=== PATIENT | female | born 1955 | race Caucasian/White ===

== ENCOUNTER 2017-06-21 10:14 | Emergency (ER) | payer OTHER ==
[~2017-06-21] VITALS: Ht 162.6 cm; Wt 92.0 kg
[~2017-06-21 10:14] MED LIST: ALPRAZOLAM0.25 M2 PO; AMIODARONE HCL400 MG PO; MELATIN3 MG PO; METOPROLOL SUCC50 MG PO; MINIVELLE1 EAC1 TD; PRADAXA150 MG PO
[2017-06-21] MEDS ORDERED: HYDROCHLOROTHIA25 MG PO (10:58)
[2017-06-21 11:29] LABS: HEMATOCRIT 43.3 % (36.0-46.0); MCH 31.7 PG (29.0-34.0); MCHC 34.6 G/DL (30.0-36.0); MCV 91.5 FL (83-99); RBC DIS.WIDTH-CV 13.4 % (11.8-14.6); RBC DIS.WIDTH-SD 45.6 % (39-53); RED BLOOD COUNT 4.73 M/uL (3.80-5.20); WHITE BLOOD COUNT 8.6 K/uL (4.1-10.2)
[2017-06-21 11:37] LABS: CHLORIDE 101 mEq/L (99-109); POTASSIUM 3.7 mEq/L (3.7-5.4); SODIUM 140 mEq/L (136-147)
[2017-06-21 11:39] LABS: GLUCOSE 95 mg/dL (70-99)
[2017-06-21 11:40] LABS: ANION GAP 10 MEQ/L (2-14)
[2017-06-21 11:43] LABS: GFR ESTIMATE (CALCULATED) > 59 mL/min/
[2017-06-21 11:44] LABS: UREA NITROGEN (BUN) 16 mg/dL (9-23)
[2017-06-21 11:50] LABS: TROP-I INTERPRETATION NEGATIVE; TROPONIN-I < 0.01 ng/mL (0.0-0.30)
[2017-06-21 12:25] LABS: MEAN PLAT.VOLUME 11.6 uM^3 (9.5-12.4); PLAT.SUFFICIENCY ADEQUATE; PLATELET COUNT 241 K/uL (156-360)
[2017-06-21 14:08] LABS: TROP-I INTERPRETATION NEGATIVE; TROPONIN-I < 0.01 ng/mL (0.0-0.30)
[2017-06-21] MEDS ORDERED: NAPROXEN500 MG PO (14:11)
[2017-06-21 14:18] VITALS: BP 124/72
== END 2017-06-21 14:19 | disposition home or self-care (01) ==
LOC: EME 10:14
PROVIDERS: Physician Assistant Medical
DX: M25.512 Pain in left shoulder (principal); R06.02 Shortness of breath; I48.91 Unspecified atrial fibrillation; Z79.01 Long term (current) use of anticoagulants; F17.200 Nicotine dependence, unspecified, uncomplicated; Z88.0 Allergy status to penicillin
CPT/HCPCS: 71020; 73030; 80048; 84484; 85027; 85379; 93005; 99281; 99285